=== PATIENT | male | born 1950 | race Two or more races ===

== ENCOUNTER 2017-02-09 10:00 | Outpatient (CLI) | payer MEDICARE, BC | END 2017-02-09 23:59 | disposition home or self-care (01) | LOC: NM 10:00 | PROVIDERS: ATTEND Internal Medicine Hematology & Oncology | DX: C61 Malignant neoplasm of prostate (principal) | CPT/HCPCS: 78306; A9503 ==

== ENCOUNTER 2018-09-04 11:11 | Emergency (ER) | payer MEDICARE, BC ==
[~2018-09-04] VITALS: Ht 175.3 cm; Wt 86.2 kg
--- NOTE | 2018-09-04 11:26 | NUR ---
68 Y/O MALE PLACED IN BED 13 C/O LEFT FOOT PAIN. HISTORY OF MULTIPLE SURGERIES ON LEFT FOOT.
--- NOTE | 2018-09-04 11:32 | NUR ---
PT SEEN BY . LEFT FOOT SWOLLEN. ALMOST TWICE THE SIZE OF THE RIGHT FOOT. LEFT FOOT ELEVATED AND ICE PACK PLACED ON CALCANIUS
--- NOTE | 2018-09-04 12:44 | NUR ---
CALLED [facility] [employer] DR MORTON FOR THIS PATIENT, PAGED.
--- NOTE | 2018-09-04 12:59 | NUR ---
X-RAY AND ULTRASOUND DONE. WAITING FOR RESULTS.
--- NOTE | 2018-09-04 13:24 | NUR ---
LEFT LEG SPLINTED. CRUTCHES GIVEN WITH TRAINING. PT DISCHARGED HOME TO FOLLOW UP WITH [facility]TH[facility] - DR. MORTON. DX - HARDWARE FAILURE - FRACTURED NANCY IN [place].
[2018-09-04 13:29] VITALS: BP 109/72
== END 2018-09-04 13:30 | disposition home or self-care (01) ==
LOC: ER 11:21
DX: T84.89XA Other specified complication of internal orthopedic prosthetic devices, implants and grafts, initial encounter (principal); S92.192D Other fracture of left talus, subsequent encounter for fracture with routine healing; I72.9 Aneurysm of unspecified site; J44.9 Chronic obstructive pulmonary disease, unspecified; Z85.46 Personal history of malignant neoplasm of prostate; Z98.890 Other specified postprocedural states; X58.XXXD Exposure to other specified factors, subsequent encounter
CPT/HCPCS: 73600-TC; 93971-TC; A4606; Z7610